=== PATIENT | male | born 2000 | race Caucasian/White ===

== ENCOUNTER 2021-06-05 17:25 | Emergency (ER) | payer MEDICAID, SELFPAY ==
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
--- NOTE | ~2021-06-05 | CT_ITS ---
EXAMINATION: CT HEAD WITHOUT CONTRAST CT FACIAL BONES WITHOUT CONTRAST CLINICAL INFORMATION: Trauma. COMPARISON: None. TECHNIQUE: Imaging was performed from the skull base to vertex without intravenous administration of contrast. In addition, helical noncontrast CT imaging was acquired through the facial bones and source images were reviewed along with axial reconstructions and sagittal and coronal MPRs. [This CT examination was performed using dose optimization techniques as appropriate, variously including the following: *Automated exposure control *Adjustment of mA and/or kV according to patient size (this includes techniques or standardized protocols for targeted exams where dose is matched to indication/reason for exam; i.e. extremities or head) *Use of iterative reconstruction technique] DLP: 828 mGy-cm FINDINGS: HEAD: No intracranial mass, hemorrhage, or midline shift is visualized. The ventricles and sulci are normal. No extra-axial collections are identified. FACIAL BONES: There is a comminuted fracture of the bilateral nasal bones. These are slightly displaced. No additional facial bone fracture. Orbits are intact. Mandible and TMJ joints are maintained. Minor mucosal thickening in the maxillary sinuses. Density in the ethmoid sinuses and nasal air passages could be related to hemorrhage or mucosal thickening. There are no air-fluid levels in the paranasal sinuses. CT/CT facial bones wo con IMPRESSION: No acute intracranial process or discrete facial bone fracture.
[2021-06-05 17:34] VITALS: BP 122/77; BP 130/90; PULSE 101; PULSE 125; RESP 20; TEMP 38.1; O2SAT 98; BMI 21.2
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
[2021-06-05 18:26] VITALS: BP 110/90; PULSE 87; RESP 18; TEMP 37.9; O2SAT 98
--- NOTE | 2021-06-05 19:01 | PC.NURSE ---
Pt has been very active, on phone, eating a rowena, pacing at times. Nose is deformed. No neuro deficits noted.
[2021-06-05] MEDS: Acetaminophen 325 MG TABLET 650 MG PO (19:04)
[2021-06-05 19:41] LABS: COVID-19 Test Negative (Negative)
== END 2021-06-05 20:01 | disposition home or self-care (01) ==
LOC: HO.ED 17:58
PROVIDERS: Physician Assistant; Emergency Provider Internal Medicine
DX: S02.2XXA Fracture of nasal bones, initial encounter for closed fracture (principal); V89.2XXA Person injured in unspecified motor-vehicle accident, traffic, initial encounter; Y04.2XXA Assault by strike against or bumped into by another person, initial encounter; Y93.9 Activity, unspecified; Y92.410 Unspecified street and highway as the place of occurrence of the external cause; Y99.9 Unspecified external cause status; Z20.822 Contact with and (suspected) exposure to COVID-19
CPT/HCPCS: 36415; 70450; 70486; 87635; 99283; 99284

== ENCOUNTER 2022-10-17 23:41 | Emergency (ER) | payer MEDICAID, SELFPAY ==
--- NOTE | ~2022-10-17 | CT_ITS ---
EXAMINATION: CT ABDOMEN AND PELVIS WITHOUT CONTRAST CLINICAL INFORMATION: Right flank pain with history of kidney stones. COMPARISON: 01/14/2020 TECHNIQUE: Multidetector volumetric imaging was performed from the superior aspect of the liver through the pubic symphysis. Sagittal and coronal reformatted images were obtained on the technologist's workstation. This CT examination was performed using dose optimization techniques as appropriate, variously including the following: *Automated exposure control *Adjustment of mA and/or kV according to patient size (this includes techniques or standardized protocols for targeted exams where dose is matched to indication/reason for exam; i.e. extremities or head) *Use of iterative reconstruction technique DLP: 329 mGy-cm FINDINGS: LUNG BASES: The visualized lung bases are unremarkable. LIVER, GALLBLADDER, AND BILIARY TREE: The liver is normal in size, shape, and attenuation. No focal hepatic lesion or biliary ductal dilatation is present. The gallbladder is contracted with no evidence of radiopaque gallstones, gallbladder wall thickening, or obvious pericholecystic inflammatory changes. PANCREAS: Unremarkable. SPLEEN: Unremarkable. ADRENAL GLANDS: Unremarkable. KIDNEYS AND URETERS: The kidneys are normal in size, shape, and attenuation. No hydronephrosis, hydroureter, or calculi seen. No perinephric stranding. BLADDER: Unremarkable. GASTROINTESTINAL TRACT: The stomach is unremarkable. Normal caliber small bowel. No obstruction. No colonic wall thickening or acute inflammation. Moderate diffuse colonic stool burden with distention of the ascending colon. Normal appendix. ABDOMINAL WALL: No significant hernia is appreciated. LYMPH NODES: Normal. VASCULAR: Unremarkable. PELVIC VISCERA: The prostate and seminal vesicles are unremarkable. OSSEOUS STRUCTURES: Unremarkable. CT/CT abdomen pelvis wo IV con IMPRESSION: 1. No acute findings in the abdomen or pelvis. No hydronephrosis or nephrolithiasis. Normal appendix. 2. Moderate colonic stool burden. Fleischner guidelines were followed.
[2022-10-17 23:52] VITALS: BP 122/76; BP 143/60; PULSE 107; PULSE 117; RESP 16; TEMP 38.7; O2SAT 99; BMI 22.0
--- NOTE | 2022-10-17 23:55 | ED_ITS ---
HPI - Abdominal Pain General Chief Complaint: Abdominal Pain Stated Complaint: Kidney Stones Time Seen by Provider: 10/17/22 23:45 Source: patient Mode of arrival: ambulatory Limitations: no limitations History of Present Illness HPI narrative: Patient's history of kidney stone last time patient had stone was last year no procedure was done comes here for pain in her right flank and right lower abdomen area for last 2 days off and on getting worse now with nausea and vomiting patient does use IV drugs also no fever no chills on arrival patient had a temperature of 101.6 degrees no cough no cold symptoms Related Data Previous Rx's Medication Instructions Recorded cefuroxime axetil 500 mg tablet 500 mg PO BID #20 tabs 10/18/22 doxycycline hyclate 100 mg tablet 100 mg PO BID #20 tabs 10/18/22 ibuprofen 600 mg tablet 600 mg PO Q6H PRN fever or pain 10/18/22 #30 tabs polyethylene glycol 3350 17 17 g PO DAILY #510 grams 10/18/22 gram/dose oral powder (Miralax) Allergies Allergy/AdvReac Type Severity Reaction Status Date / Time cinnamon [CINNAMON] Allergy Severe ANAPHYLAXIS Verified 10/18/22 01:38 Review of Systems Review of Systems Yes all other systems are reviewed and are negative PMFSH Past Medical History Medical History No known health problems Social History Social History Advance Directives: No Advance Directives Information Provided: Yes Physical Exam ED Vital Signs: Vital Signs - 24 hr 10/17/22 23:52 10/18/22 01:07 Temperature 101.6 F H 99.6 F Pulse Rate 107 H 90 Respiratory Rate 16 16 Blood Pressure 143/60 H 114/51 L Pulse Oximetry 99 97 Oxygen Delivery Method Room Air Room Air BMI result Body Mass Index 22.0 Appearance: Alert. Oriented X3. No acute distress. Eyes: PERRLA, No Nystagmus ENT: Pharynx normal. Oral Mucosa moist Neck: Normal inspection. Neck supple. CVS: Normal heart rate and rhythm. Pulses normal. Respiratory: No respiratory distress. Equal air entry bilateral, no wheezing/rales/rhonchi Abdomen: Soft and nontender. Bowel sounds are present, no mass palpable,r CVA tenderness : normal left testicle right epididymis tender and swollen testicle is normal Skin: Skin warm and dry. Normal skin color. Normal skin turgor. Extremities: No lower extremity edema. No calf tenderness Neuro: Oriented X 3. No motor deficit. No sensory deficit.No cerebellar signs , cranial nerves II-XII intact Medications Administered Discontinued Medications Generic Name Dose Route Start Last Admin Trade Name Freq PRN Reason Stop Dose Admin Bisacodyl 10 mg 10/18/22 00:59 10/18/22 01:24 Bisacodyl 5 Mg Tablet.Dr PO 10/18/22 01:00 10 mg ONCE ONE Administration Doxycycline Monohydrate 100 mg 10/18/22 01:10 10/18/22 01:24 Doxycycline Monohydrate 100 Mg Capsule PO 10/18/22 01:11 100 mg ONCE ONE Administration Sodium Chloride 1,000 mls @ 999 mls/hr 10/17/22 23:59 10/18/22 00:56 Ns IV 10/18/22 00:59 999 mls/hr .Q1H1M ONE Administration Ceftriaxone Sodium 1 gm/ 50 mls @ 100 mls/hr 10/18/22 01:10 10/18/22 01:23 Sodium Chloride IV 10/18/22 01:39 100 mls/hr ONCE ONE Administration Ketorolac Tromethamine 30 mg 10/18/22 00:59 10/18/22 01:24 Ketorolac Tromethamine 30 Mg/Ml Vial IVPUSH 10/18/22 01:00 30 mg ONCE ONE Administration Magnesium Hydroxide 30 ml 10/18/22 00:59 10/18/22 01:24 Milk Of Magnesia 30 Ml Oral.Susp PO 10/18/22 01:00 30 ml ONCE ONE Administration Ondansetron HCl 4 mg 10/17/22 23:59 10/18/22 00:56 Ondansetron Hcl 4 Mg/2 Ml Vial IVPUSH 10/18/22 00:00 4 mg ONCE ONE Administration MDM - Abdominal Pain MDM Narrative Medical decision making narrative: Patient with right epididymitis likely the cause of fever clinically not abscess will give Rocephin IV in the ER discharged on Ceftin and doxycycline advised to follow-up with PCP or come to the ER if increased pain or fever at that time we did do ultrasound to rule out abscess WBC counts and lactic acid are normal at this time Differential Diagnosis Differential diagnosis: Likely calculus of kidney Lab Data Attestation: I reviewed the patient's lab results. Result diagrams: 10/18/22 01:02 10/18/22 01:02 Labs: Lab Results 10/18/22 10/18/22 10/18/22 Range/Units 01:02 01:02 01:17 WBC 7.4 (4.8-10.8) X10*3/uL RBC 4.62 (4.60-5.80) X10*6/uL Hgb 12.6 L (14.0-18.0) g/dl Hct 38.8 L (42.0-52.0) % MCV 84.0 (80.0-98.0) fL MCH 27.3 (27.0-33.0) pg MCHC 32.5 (31.0-36.0) g/dl RDW 14.6 (11.0-16.0) % Plt Count 315 (160-400) X10*3/uL MPV 10.1 (9.4-12.4) fL Immature Gran % (Auto) 0.5 H (0.0-0.4) % Neut % (Auto) 80.0 H (45-73) % Lymph % (Auto) 9.2 L (20-40) % [place] % (Auto) 8.8 (2-11) % Eos % (Auto) 1.1 (0-4) % Baso % (Auto) 0.4 (0-2) % Lymph # (Auto) 0.7 L (1.2-4.9) X10*3/uL [place] # (Auto) 0.7 (0.1-1.2) X10*3/uL Eos # (Auto) 0.1 (0.0-0.4) X10*3/uL Baso # (Auto) 0.0 (0.0-0.2) X10*3/uL Abs Immat Gran (auto) 0.04 H (0.00-0.03) X10*3/uL Absolute Neuts (auto) 5.9 (2.0-8.3) x10*3/uL Absolute Nucleated RBC 0.000 (0.0-0.012) X10*3/uL Nucleated RBC % (auto) 0.0 (0.0-0.2) /100WBC Lactic Acid 1.4 (0.5-2.0) mmol/L COVID-19 (AVIS) Negative (Negative) COVID-19 Clin Com See Note Discharge Plan Discharge Clinical Impression: Constipation, Epididymitis Patient Disposition: Home, Self-Care Additional Instructions: Drink plenty of fluids Take antibiotic as prescribed Medicine for constipation daily Report to the ER if worsening of pain in testicle/high fever Prescriptions: New ibuprofen 600 mg tablet 600 mg PO Q6H PRN (Reason: fever or pain) Qty: 30 0RF cefuroxime axetil 500 mg tablet 500 mg PO BID Qty: 20 0RF doxycycline hyclate 100 mg tablet 100 mg PO BID Qty: 20 0RF polyethylene glycol 3350 [Miralax] 17 gram/dose powder 17 g PO DAILY Qty: 510 0RF
--- NOTE | 2022-10-18 00:15 | PC.NURSE ---
This RN attempted 2 IVs on right arm, both unsuccessful. Charge notified.
[2022-10-18] MEDS: 0.9 % Sodium Chloride 1,000 ML 999 ML IV ×2 (00:56→03:32)
[2022-10-18] MEDS: ondansetron HCL 4 MG/2 ML VIAL IVPUSH (00:56)
[2022-10-18 01:07] VITALS: BP 114/51; PULSE 90; RESP 16; TEMP 37.6; O2SAT 97
[2022-10-18 01:08] LABS: Basophils Percent Auto 0.4 % (0-2); Eosinophils Absolute Auto 0.1 X10*3/uL (0.0-0.4); Eosinophils Percent Auto 1.1 % (0-4); Hematocrit 38.8 % (42.0-52.0); Hemoglobin 12.6 g/dl (14.0-18.0); Imm Gran Abs Auto 0.04 X10*3/uL (0.00-0.03); Imm Gran Pct Auto 0.5 % (0.0-0.4); Lymphocytes Absolute Auto 0.7 X10*3/uL (1.2-4.9); Lymphocytes Percent Auto 9.2 % (20-40); MANUAL DIFF FLAG NO; Mean Corpuscular HGB Conc 32.5 g/dl (31.0-36.0); Mean Corpuscular Hemoglobin 27.3 pg (27.0-33.0); Mean Platelet Volume 10.1 fL (9.4-12.4); Monocytes Absolute Auto 0.7 X10*3/uL (0.1-1.2); Monocytes Percent Auto 8.8 % (2-11); Neutrophils Absolute Auto 5.9 x10*3/uL (2.0-8.3); Platelet Count 315 X10*3/uL (160-400); Red Blood Count 4.62 X10*6/uL (4.60-5.80); Red Cell Distribution Width 14.6 % (11.0-16.0); White Blood Count 7.4 X10*3/uL (4.8-10.8)
[2022-10-18 01:19] LABS: COVID-19 Test Negative (Negative); IDNOW Serial# BCCEAD1C
[2022-10-18] MEDS: cefTRIAXone sodium 1 GM in 0.9 % Sodium Chloride 50 ML IV (01:23)
[2022-10-18] MEDS: Milk of Magnesia 30 ML ORAL.SUSP PO (01:24)
[2022-10-18] MEDS: Doxycycline Monohydrate 100 MG CAPSULE PO (01:24)
[2022-10-18] MEDS: bisacodyL 5 MG TABLET.DR 10 MG PO (01:24)
[2022-10-18] MEDS: Ketorolac Tromethamine 30 MG/ML VIAL IVPUSH (01:24)
[2022-10-18 01:32] LABS: Lactic Acid 1.4 mmol/L (0.5-2.0)
[2022-10-18 01:39] LABS: Alanine Aminotransferase 73 U/L (0-40); Albumin Level 3.8 g/dL (3.5-5.0); Alkaline Phosphatase 110 U/L (39-117); Anion Gap 12 (12-20); Aspartate Amino Transferase 23 U/L (5-37); Bilirubin Total 0.8 mg/dL (0.0-1.0); Blood Urea Nitrogen 9 mg/dL (9-16); Calcium 9.3 mg/dL (8.4-10.2); Carbon Dioxide 29 mmol/L (22-29); Chloride 98 mmol/L (96-108); Creatinine Clr Calc Pharmacy 143.7; Estimated Glomerular Filt Rate > 60; Glucose Random 101 mg/dL (60-115); Potassium 4.3 mmol/L (3.3-5.1); Sodium 135 mmol/L (135-145); Total Protein 8.1 g/dL (6.5-8.0)
[2022-10-18 05:27] VITALS: BP 118/81; PULSE 64; RESP 16; O2SAT 98
[2022-10-18 05:29] LABS: Appearance Urine Turbid; Color Urine Dark Yellow; Glucose Urine UA Negative (Negative); Leukocyte Esterase Urine Large (3+) (Negative); Nitrite Urine Negative (Negative); PH 6.5 (5.0-9.0); Specific Gravity - Urine 1.015 (1.005-1.025); UMIC TRIGGER UACC YES; Urine Blood Moderate (2+) (Negative); Urine Ketones Negative (Negative); Urine Protein 100 (2+) mg/dL (Neg-Trace)
[2022-10-18 05:34] LABS: Bacteria Urine Trace (None Seen); Hyaline Casts Urine 0-2 /LPF (0-2); RBC Urine >20 /HPF (0-2); Squamous Epithelial Cell Urine 0-2 /HPF (0-2); UACC Culture Trigger YES; WBC Urine >50 /HPF (0-5)
[2022-10-18 06:17] VITALS: BP 99/70; PULSE 67; RESP 16; TEMP 37.7; O2SAT 95
[2022-10-18 07:26] LABS: CT PCR NOT DETECTED (Not Detect.); NG PCR DETECTED (Not Detect.)
== END 2022-10-18 06:49 | disposition home or self-care (01) ==
PROVIDERS: Emergency Provider Internal Medicine
DX: A54.23 Gonococcal infection of other male genital organs (principal); K59.00 Constipation, unspecified; R50.9 Fever, unspecified; Z20.822 Contact with and (suspected) exposure to COVID-19
CPT/HCPCS: 36415; 74176; 80053; 81001; 83605; 85025; 87086; 87491; 87591; 87635; 96361; 96374; 96375; 99284; J0696; J1885; J2405

== ENCOUNTER 2023-02-10 13:30 | Emergency (ER) | payer MEDICAID, SELFPAY ==
[2023-02-10 13:38] VITALS: BP 109/72; PULSE 123; O2SAT 98
[2023-02-10 13:41] VITALS: BP 111/63; PULSE 105; RESP 19; TEMP 37.1; O2SAT 97; BMI 22.8
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
--- NOTE | 2023-02-10 14:24 | ED.OVERDOSE ---
HPI - Overdose General Chief Complaint: Overdose Stated Complaint: OPIOID OD, 8 MG NASAL NARCAN Time Seen by Provider: 02/10/23 14:04 Source: patient Mode of arrival: EMS History of Present Illness HPI Narrative: This is a 22-year-old male who presents via EMS after he was found unresponsive when he used heroin from a new person and had received 8 mg of intranasal Narcan. Patient states that he has recently gotten out of residential approximately 1 week ago and says that he is been doing okay but then his dad was trying to help him get into a facility but they were full. He denies any suicidal or homicidal ideation and becomes very emotional and states ?I feel lost?. He does state that he is interested in being put in for resources and detox. Related Data Previous Rx's Medication Instructions Recorded cefuroxime axetil 500 mg tablet 500 mg PO BID #20 tabs 10/18/22 doxycycline hyclate 100 mg tablet 100 mg PO BID #20 tabs 10/18/22 ibuprofen 600 mg tablet 600 mg PO Q6H PRN fever or pain 10/18/22 #30 tabs polyethylene glycol 3350 17 17 g PO DAILY #510 grams 10/18/22 gram/dose oral powder (Miralax) Allergies Allergy/AdvReac Type Severity Reaction Status Date / Time cinnamon [CINNAMON] Allergy Severe ANAPHYLAXIS Verified 02/10/23 13:41 Review of Systems Review of Systems: Pertinent positives and negatives as stated in HPI PMFSH Past Medical History Source: nursing notes reviewed Medical History No known health problems Social History Social History Advance Directives: No Advance Directives Information Provided: Yes Physical Exam Vital Signs: Vital Signs: Last Vital Signs Temp 98.7 F 02/10/23 13:41 Pulse 86 02/10/23 15:37 Resp 12 02/10/23 15:37 BP 98/60 02/10/23 15:37 Pulse Ox 99 02/10/23 15:37 O2 Del Method Room Air 02/10/23 15:37 BMI result Body Mass Index 22.8 VITAL SIGNS: Reviewed. GENERAL: Well developed, well nourished, in no acute distress. HEAD: Normocephalic/atraumatic EYES: PERRLA, EOMI LUNGS: Normal breath sounds. No adventitious sounds or accessory muscle use. SpO2<99> CARDIOVASCULAR: Regular rate and rhythm without noted murmurs ABDOMEN: Soft, non-tender, non-distended with bowel sounds. MUSCULOSKELETAL: No tenderness, deformities, or effusions noted on gross inspection. EXTREMITIES: No cyanosis, clubbing or edema. SKIN: Inspection of the skin reveals no rashes NEUROLOGIC: Alert and oriented x 4. Strength and sensation to light touch were grossly intact x 4. Medical Decision Making Medical Decision Making [facility] Narrative: This is a 22-year-old male with history and clinical presentation consistent with accidental overdose, he does wish to pursue detox, I reviewed all investigations without noting any acute findings. A care team consult was placed for UNIQUE evaluation. Patient has ordered home Narcan. Signed out to Dr Elias Differential Diagnosis Please see the discussion above Lab Data Please see the discussion above 02/10/23 14:26 02/10/23 14:26 Labs: Lab Results 02/10/23 02/10/23 02/10/23 Range/Units 14:26 14:26 14:26 WBC 5.4 (4.8-10.8) X10*3/uL RBC 3.95 L (4.60-5.80) X10*6/uL Hgb 11.7 L (14.0-18.0) g/dl Hct 35.1 L (42.0-52.0) % MCV 88.9 (80.0-98.0) fL MCH 29.6 (27.0-33.0) pg MCHC 33.3 (31.0-36.0) g/dl RDW 13.2 (11.0-16.0) % Plt Count 241 (160-400) X10*3/uL MPV 10.4 (9.4-12.4) fL Immature Gran % (Auto) 0.2 (0.0-0.4) % Neut % (Auto) 66.3 (45-73) % Lymph % (Auto) 22.8 (20-40) % [place] % (Auto) 9.4 (2-11) % Eos % (Auto) 0.9 (0-4) % Baso % (Auto) 0.4 (0-2) % Lymph # (Auto) 1.2 (1.2-4.9) X10*3/uL [place] # (Auto) 0.5 (0.1-1.2) X10*3/uL Eos # (Auto) 0.1 (0.0-0.4) X10*3/uL Baso # (Auto) 0.0 (0.0-0.2) X10*3/uL Abs Immat Gran (auto) 0.01 (0.00-0.03) X10*3/uL Absolute Neuts (auto) 3.6 (2.0-8.3) x10*3/uL Absolute Nucleated RBC 0.000 (0.0-0.012) X10*3/uL Nucleated RBC % (auto) 0.0 (0.0-0.2) /100WBC Sodium 141 (135-145) mmol/L Potassium 4.1 (3.3-5.1) mmol/L Chloride 106 (96-108) mmol/L Carbon Dioxide 27 (22-29) mmol/L Anion Gap 12 (12-20) BUN 15 (9-16) mg/dL Creatinine 0.80 (0.5-1.4) mg/dL Estim Creat Clear Calc 139.3 Estimated GFR > 60 Random Glucose 107 (60-115) mg/dL Calcium 9.2 (8.4-10.2) mg/dL Urine Color Urine Appearance Urine pH (5.0-9.0) Ur Specific [place] (1.005-1.025) Urine Protein (Neg-Trace) mg/dL Urine Glucose (UA) (Negative) mg/dL Urine Ketones (Negative) mg/dL Urine Blood (Negative) Urine Nitrite (Negative) Ur Leukocyte Esterase (Negative) Urine RBC (0-2) /HPF Urine WBC (0-5) /HPF Ur Squamous Epith Cells (0-2) /HPF Urine Bacteria (None Seen) Hyaline Casts (0-2) /LPF Urine Opiates Screen (Not Detect) Urine Fentanyl Screen (Not Detect) Ur Barbiturates Screen (Not Detect) Ur Phencyclidine Scrn (Not Detect) Ur Amphetamines Screen (Not Detect) U Benzodiazepines Scrn (Not Detect) Urine Cocaine Screen (Not Detect) U Marijuana (THC) Screen (Not Detect) COVID-19 (AVIS) Negative (Negative) COVID-19 Clin Com See Note 02/10/23 02/10/23 Range/Units 14:26 14:26 WBC (4.8-10.8) X10*3/uL RBC (4.60-5.80) X10*6/uL Hgb (14.0-18.0) g/dl Hct (42.0-52.0) % MCV (80.0-98.0) fL MCH (27.0-33.0) pg MCHC (31.0-36.0) g/dl RDW (11.0-16.0) % Plt Count (160-400) X10*3/uL MPV (9.4-12.4) fL Immature Gran % (Auto) (0.0-0.4) % Neut % (Auto) (45-73) % Lymph % (Auto) (20-40) % [place]cl[place] % (Auto) (2-11) % Eos % (Auto) (0-4) % Baso % (Auto) (0-2) % Lymph # (Auto) (1.2-4.9) X10*3/uL [place] # (Auto) (0.1-1.2) X10*3/uL Eos # (Auto) (0.0-0.4) X10*3/uL Baso # (Auto) (0.0-0.2) X10*3/uL Abs Immat Gran (auto) (0.00-0.03) X10*3/uL Absolute Neuts (auto) (2.0-8.3) x10*3/uL Absolute Nucleated RBC (0.0-0.012) X10*3/uL Nucleated RBC % (auto) (0.0-0.2) /100WBC Sodium (135-145) mmol/L Potassium (3.3-5.1) mmol/L Chloride (96-108) mmol/L Carbon Dioxide (22-29) mmol/L Anion Gap (12-20) BUN (9-16) mg/dL Creatinine (0.5-1.4) mg/dL Estim Creat Clear Calc Estimated GFR Random Glucose (60-115) mg/dL Calcium (8.4-10.2) mg/dL Urine Color Dark Yellow Urine Appearance Clear Urine pH 5.5 (5.0-9.0) Ur Specific [place] >= 1.030 H (1.005-1.025) Urine Protein 30 (1+) H (Neg-Trace) mg/dL Urine Glucose (UA) Negative (Negative) mg/dL Urine Ketones Trace (Negative) mg/dL Urine Blood Negative (Negative) Urine Nitrite Negative (Negative) Ur Leukocyte Esterase Negative (Negative) Urine RBC 0-2 (0-2) /HPF Urine WBC 0-5 (0-5) /HPF Ur Squamous Epith Cells 0-2 (0-2) /HPF Urine Bacteria None Seen (None Seen) Hyaline Casts 0-2 (0-2) /LPF Urine Opiates Screen POSITIVE H (Not Detect) Urine Fentanyl Screen POSITIVE H (Not Detect) Ur Barbiturates Screen Not Detected (Not Detect) Ur Phencyclidine Scrn Not Detected (Not Detect) Ur Amphetamines Screen Not Detected (Not Detect) U Benzodiazepines Scrn Not Detected (Not Detect) Urine Cocaine Screen POSITIVE H (Not Detect) U Marijuana (THC) Screen POSITIVE H (Not Detect) COVID-19 (AVIS) (Negative) COVID-19 Clin Com Discharge Plan Discharge Clinical Impression: Drug overdose Patient Disposition: Still a Patient Instructions: Adult Overdose (ED) Prescriptions: No Action ibuprofen 600 mg tablet 600 mg PO Q6H PRN (Reason: fever or pain) Qty: 30 0RF cefuroxime axetil 500 mg tablet 500 mg PO BID Qty: 20 0RF doxycycline hyclate 100 mg tablet 100 mg PO BID Qty: 20 0RF polyethylene glycol 3350 [Miralax] 17 gram/dose powder 17 g PO DAILY Qty: 510 0RF Interventions: [place]-Suicide Risk Severity Scale Last Done: 02/10/23 14:13
[2023-02-10 14:35] LABS: MANUAL DIFF FLAG NO
[2023-02-10 14:44] LABS: Basophils Percent Auto 0.4 % (0-2); Eosinophils Absolute Auto 0.1 X10*3/uL (0.0-0.4); Eosinophils Percent Auto 0.9 % (0-4); Hematocrit 35.1 % (42.0-52.0); Hemoglobin 11.7 g/dl (14.0-18.0); Imm Gran Abs Auto 0.01 X10*3/uL (0.00-0.03); Imm Gran Pct Auto 0.2 % (0.0-0.4); Lymphocytes Absolute Auto 1.2 X10*3/uL (1.2-4.9); Lymphocytes Percent Auto 22.8 % (20-40); Mean Corpuscular HGB Conc 33.3 g/dl (31.0-36.0); Mean Corpuscular Hemoglobin 29.6 pg (27.0-33.0); Mean Corpuscular Volume 88.9 fL (80.0-98.0); Mean Platelet Volume 10.4 fL (9.4-12.4); Monocytes Absolute Auto 0.5 X10*3/uL (0.1-1.2); Monocytes Percent Auto 9.4 % (2-11); Neutrophils Absolute Auto 3.6 x10*3/uL (2.0-8.3); Neutrophils Percent Auto 66.3 % (45-73); Platelet Count 241 X10*3/uL (160-400); Red Blood Count 3.95 X10*6/uL (4.60-5.80); Red Cell Distribution Width 13.2 % (11.0-16.0); White Blood Count 5.4 X10*3/uL (4.8-10.8)
[2023-02-10 14:55] LABS: COVID-19 Test Negative (Negative); IDNOW Serial# BCCEAD1C
[2023-02-10 14:58] LABS: Anion Gap 12 (12-20); Appearance Urine Clear; Blood Urea Nitrogen 15 mg/dL (9-16); Calcium 9.2 mg/dL (8.4-10.2); Carbon Dioxide 27 mmol/L (22-29); Chloride 106 mmol/L (96-108); Color Urine Dark Yellow; Creatinine Clr Calc Pharmacy 139.3; Estimated Glomerular Filt Rate > 60; Glucose Random 107 mg/dL (60-115); Glucose Urine UA Negative (Negative); Leukocyte Esterase Urine Negative (Negative); Nitrite Urine Negative (Negative); PH 5.5 (5.0-9.0); Potassium 4.1 mmol/L (3.3-5.1); Sodium 141 mmol/L (135-145); UMIC TRIGGER UACC YES; Urine Blood Negative (Negative); Urine Ketones Trace mg/dL (Negative); Urine Protein 30 (1+) mg/dL (Neg-Trace)
[2023-02-10 15:05] LABS: Amphetamine Screen Urine Not Detected (Not Detect); Barbiturates, Urine Not Detected (Not Detect); Benzodiazepines Screen Urine Not Detected (Not Detect); Cannabinoid Screen Urine POSITIVE (Not Detect); Cocaine Screen Urine POSITIVE (Not Detect); Fentanyl, urine POSITIVE (Not Detect); Opiate Screen Urine POSITIVE (Not Detect); Phencyclidine Screen Urine Not Detected (Not Detect)
[2023-02-10 15:22] LABS: Bacteria Urine None Seen (None Seen); Hyaline Casts Urine 0-2 /LPF (0-2); RBC Urine 0-2 /HPF (0-2); Squamous Epithelial Cell Urine 0-2 /HPF (0-2); WBC Urine 0-5 /HPF (0-5)
[2023-02-10 15:37] VITALS: BP 98/60; PULSE 86; RESP 12; O2SAT 99
[2023-02-10 15:41] LABS: Specific Gravity - Urine >= 1.030 (1.005-1.025)
--- NOTE | 2023-02-10 15:54 | HO.SUDE ---
This marine underwriter met w/ patient for SUDE. Patient reports has been stable on Suboxone for past 4-5 months, while in half-way. Patient states daily dose 8mg Suboxone. Patients last dose of Suboxone was two days [employer] at hospital. Patient states was released from half-way and missed follow up Suboxone appt. Patient reports today went to [facility] appt and was feeling withdrawal s/s, a friend gave patient one bag heroin, patient snorted the one bag and immediately overdosed, patients friend left the scene. Patient tearful during SUDE. Patient states snorts crack/bailee, no other substances used. Patient reports this is first overdose. Harm reduction reviewed. Patient states goal to get back on 8mg Suboxone daily. Recovery resources reviewed and left at bedside. T/W connected with [facility], intake appt scheduled for 02/12/23 at 1pm at [address] [place] [address], appt card given to patient. Patient reports no withdrawal s/s at this time, patient states right hand/are are painful/uncomfortable, as patient believes fell on right side when overdosed, ED RN aware.
[2023-02-10] MEDS: Naloxone HCl Nasal TAKE HOME 4 MG SPRAY NOSTRILALT (18:51)
--- NOTE | 2023-02-10 19:47 | PC.NURSE ---
pt discharged with take home Naloxone.
== END 2023-02-10 19:48 | disposition home or self-care (01) ==
PROVIDERS: Emergency Provider Student in an Organized Health Care Education/Training Program
DX: T40.1X1A Poisoning by heroin, accidental (unintentional), initial encounter (principal); R40.4 Transient alteration of awareness; Y92.9 Unspecified place or not applicable; R00.0 Tachycardia, unspecified; F11.20 Opioid dependence, uncomplicated; Z20.822 Contact with and (suspected) exposure to COVID-19; Z79.899 Other long term (current) drug therapy
CPT/HCPCS: 80048; 80307; 81001; 81003; 85025; 87635; 99284

== ENCOUNTER 2023-10-10 13:35 | Outpatient (REF) | payer MEDICAID, SELFPAY ==
[2023-10-10 16:53] LABS: Alanine Aminotransferase 28 U/L (0-40); Albumin Level 4.1 g/dL (3.5-5.0); Alkaline Phosphatase 81 U/L (39-117); Aspartate Amino Transferase 31 U/L (5-37); Bilirubin Direct 0.2 mg/dL (0.0-0.5); Bilirubin Total 0.8 mg/dL (0.0-1.0); Total Protein 7.6 g/dL (6.5-8.0)
[2023-10-11 04:21] LABS: Hepatitis A Antibody IgM 0.47 Index (0-0.79); ~Hepatitis A Antibody IgM Nonreactive (Nonreactive)
[2023-10-11 04:24] LABS: HBS Num1 1.01 mIU/mL (0-7.99); HBc Num1 0.06 S/CO (0.00-0.79); HBsAGNum1 0.41 S/CO (0.00-0.99); HIV AB/AG Nonreactive (Nonreactive); HIV Num 1 0.16 S/CO (0.00-0.99); Hepatitis B Core Antibody Nonreactive (Nonreactive); Hepatitis B Surface Antigen Negative (Negative); ~HepC Num1 16.47 S/CO (0.00-0.79); ~Hepatitis B Surface Antibody NONREACTIVE (Nonreactive); ~Hepatitis C Antibody Reactive (Nonreactive)
[2023-10-11 13:09] LABS: RPR Rapid Plasma Reagin NON-REACTIVE (NON-REACTIVE)
[2023-10-12 18:23] LABS: HCV Log PCR 6.99 Log IU/mL (NOT DETECTED)
[2023-10-12 21:38] LABS: TS Negative Control Passed; TS Panel A 2; TS Panel B 1; TS Positive Control Passed; TSpotTB Negative (Negative)
== END 2023-10-10 13:36 | disposition home or self-care (01) ==
LOC: HO.HHCL 13:35
PROVIDERS: Visit Provider Emergency Medicine
DX: Z11.4 Encounter for screening for human immunodeficiency virus [HIV] (principal); Z11.1 Encounter for screening for respiratory tuberculosis; F11.20 Opioid dependence, uncomplicated
CPT/HCPCS: 36415; 80076; 86481; 86592; 86704; 86706; 86709; 86803; 87340; 87389; 87522